=== PATIENT | male | born 1990 | race Caucasian/White ===

== ENCOUNTER 2017-11-03 12:27 | Inpatient (IN) | payer OTHER ==
[~2017-11-03] VITALS: Ht 177.8 cm; Wt 122.5 kg
[~2017-11-03 12:27] MED LIST: CIPROFLOXACIN500 M1 PO; LOPERAMIDE 2 MG2 M1 PO
[2017-11-03 12:39] VITALS: BP 115/67
[2017-11-03] MEDS ORDERED: IBUPROFEN 800800 M1 PO (12:42)
[2017-11-03 13:52] LABS: HEMATOCRIT 43.6 % (42.0-52.0); HEMOGLOBIN 14.8 gm/dL (14.0-18.0); MCH 32.2 pg (26.0-34.0); MCHC 33.8 g/dL (28.0-37.0); MCV 95.2 fL (80.0-100.0); MPV 6.9 fl. (7.2-11.1); NUCLEATED RBCS 0 /100WBC; PLATELET COUNT* 240 thou/uL (150-400); RBC 4.58 mil/uL (4.50-6.00); RDW-CV 13.2 % (10.5-14.5); WBC 18.5 thou/uL (4.0-11.0)
[2017-11-03 13:59] LABS: URINE BILIRUBIN NEGATIVE (Negative); URINE BLOOD NEGATIVE (Negative); URINE CLARITY SL CLOUDY; URINE COLOR YELLOW; URINE GLUCOSE-RANDOM NEGATIVE (Negative); URINE KETONES NEGATIVE (Negative); URINE LEUKOCYTES-REFLEX NEGATIVE (Negative); URINE NITRITE-REFLEX NEGATIVE (Negative); URINE PROTEIN 1+ (Negative); URINE SPECIFIC GRAVITY 1.015 (1.005-1.030)
[2017-11-03 14:10] LABS: CALCIUM 8.7 mg/dL (8.5-10.1); CREATININE 0.9 mg/dL (0.6-1.3)
[2017-11-03 14:15] LABS: ALBUMIN 3.3 g/dL (3.4-5.0)
[2017-11-03 14:31] LABS: ABSOLUTE EOSINOPHILS 0.4 thou/uL (0.0-0.7); ABSOLUTE LYMPHOCYTES 2.6 thou/uL (0.8-5.3); ABSOLUTE MONOCYTES 0.6 thou/uL (0.0-1.2); ATYPICAL LYMPHS 4 %; PLATELET ESTIMATE ADEQUATE
[2017-11-03 14:33] LABS: AMYLASE 28 U/L (25-115); LIPASE 61 U/L (73-393)
[2017-11-03 17:04] VITALS: BP 104/56
[2017-11-03 17:25] VITALS: BP 125/72
--- NOTE | 2017-11-03 18:49 | NUR ---
PATIENT ADMITTED TO THE FLOOR THIS EVENING, PAIN MEDICATION GIVEN FOR ABDOMEN PAIN. SURGERY TO FOLLOW UP WITH PATIENT ON WHAT THE NEXT STEPS ARE FOR BOWEL PERFORATION. NPO UNTIL SURGERY DECIDES OTHERWISE. PATIENT EDUCATED AND ORIENTED TO ROOM. VITALS WNL, ALL QUESTIONS ANSWERED. BED IN LOWEST POSITON, DENIES NAUSEA AND SHORTNESS OF AIR. FLUIDS INFUSING, CALL LIGHT IN REACH.
[2017-11-03 20:00] VITALS: BP 132/63
--- NOTE | 2017-11-04 02:48 | NUR ---
PT ALERT ORIENTED. TAKING MORPHINE FOR ABD PAIN. UP AD MEGAN IN ROOM. IVF INFUSING. WILL CONTINUE TO MONITOR.
[2017-11-04 04:31] LABS: HEMOGLOBIN 14.1 gm/dL (14.0-18.0); MCH 32.1 pg (26.0-34.0); MCHC 33.7 g/dL (28.0-37.0); MCV 95.4 fL (80.0-100.0); MPV 7.4 fl. (7.2-11.1); RBC 4.4 mil/uL (4.50-6.00); RDW-CV 12.8 % (10.5-14.5); WBC 17.3 thou/uL (4.0-11.0)
[2017-11-04 08:00] VITALS: BP 116/60
[2017-11-04 16:07] VITALS: BP 115/70
--- NOTE | 2017-11-04 16:26 | NUR ---
PATIENT GIVEN PRN FENTANYL THIS AM X 1, NO FURTHER COMPLAINTS OF PAIN. TOLERATING CLEAR DIET. IVF REMAINS INFUSING. PATIENT UP AND AMBULATING WITHOUT DIFFICULTY.
[2017-11-04 19:47] LABS: DIRECT BILIRUBIN 0.5 mg/dL (<0.1-0.3); TOTAL BILIRUBIN 2.5 mg/dL (<0.1-1.0)
[2017-11-04 20:50] VITALS: BP 125/69
[2017-11-05 04:32] LABS: HEMATOCRIT 43.1 % (42.0-52.0); HEMOGLOBIN 14.6 gm/dL (14.0-18.0); MCH 32.2 pg (26.0-34.0); MCV 94.7 fL (80.0-100.0); MPV 7.3 fl. (7.2-11.1); RBC 4.55 mil/uL (4.50-6.00); RDW-CV 12.9 % (10.5-14.5); WBC 15.5 thou/uL (4.0-11.0)
[2017-11-05 04:50] LABS: ALBUMIN 2.9 g/dL (3.4-5.0); CALCIUM 8.9 mg/dL (8.5-10.1); CREATININE 1.1 mg/dL (0.6-1.3); POTASSIUM 3.7 mmol/L (3.5-5.1); TOTAL BILIRUBIN 1.3 mg/dL (<0.1-1.0); TOTAL PROTEIN 7.2 g/dL (6.4-8.2)
[2017-11-05 05:22] LABS: % SATURATION 8 % (20-39); IRON 17 ug/dL (50-175)
--- NOTE | 2017-11-05 05:53 | NUR ---
PT SLEPT MOST OF SHIFT. ASSESSMENT DOCUMENTED. MEDS GIVEN PER E-MAR. IV PATENT, FLUIDS INFUISNG. PAIN MEDS GIVEN PER E-MAR WITH RELIEF. WILL CONTINUE WITH PLAN OF CARE.
[2017-11-05 07:40] VITALS: BP 117/70
[2017-11-05] MEDS ORDERED: CIPRO500 MG PO (09:16)
[2017-11-05] MEDS ORDERED: FLAGYL500 MG PO (09:17)
[2017-11-05 09:32] VITALS: BP 117/70
[2017-11-05] MEDS ORDERED: ALIGN4 MG PO (09:35)
--- NOTE | 2017-11-05 12:10 | NUR ---
PATIENT TOLERATING LOW RES DIET. IV ABX INFUSED CIPRO/FLAGYL ORDERED. PATIENT INSTRUCTED ON LOW RES AND HIGH FIBER DIET, RESOURCES GIVEN. IV DC'D. VERBALIZES UNDERSTANDING OF PAPERWORK AND SCRIPT. PATIENT AMBULATED OUT WITH NURSING STAFF AND ALL BELONGINGS.
[2017-11-06 03:07] LABS: HEPATITIS B SURFACE AG Negative (Negative)
--- NOTE | 2017-11-09 17:21 | CON ---
[address] [address] CONSULTATION Name: FAISAL TEIXEIRA Room: [address] IN M.R.#: [id number] Admission: 11/03/17 Attend Phys: Jessi Gomez MD Discharge: 11/05/17 Date of : 86 Report #: [id number] THIS REPORT FOR: //name// CC: Jessi Abarca [facility] Primary Care Physician DICTATED BY: Lore PRASAD DATE OF SERVICE: 11/04/2017 PCP: He does not have one at the current time/ Please note at the time of this dictation, the patient was seen and physically examined by myself. REASON FOR CONSULTATION: Abdominal pain. HISTORY OF PRESENT ILLNESS: This is a 27-year-old male who on Friday began having some abdominal discomfort. He also noted that he was having decreased amounts of urination and painful urination and then having pain down in his testicles bilaterally, more so on the left than on the right. The patient states he has a long history of having chronic diarrhea in which he goes 3-4 times a day. His bowels are very loose. They may even be looser depending on what he has eaten. He states this has been ongoing for him for probably past 5-7 years. He denies any bright red blood or any melena in his stool at this time. Since being admitted, he states his pain is improved. It is running around 4 to 5. He is able to get up and move around a little bit in the room without any issues. He has had no nausea or vomiting since he has been here. He has had numerous stools that are normal in frequency for him. He denies any fever or chills as well. ALLERGIES: No known drug allergies. MEDICATIONS: From home, ibuprofen as needed. PAST MEDICAL HISTORY: Negative. PAST SURGICAL HISTORY: Negative. FAMILY HISTORY: Father had colon cancer in his early 40s, also cirrhosis of the liver secondary to hepatitis C and alcohol abuse. SOCIAL HISTORY: The patient is , has children. He does drink alcohol weekly, usually a case on the weekend. Denies any tobacco use; however, he does smoke marijuana [place] [address] CONSULTATION Name: FAISAL TEIXEIRA Grabiel Room: [address]#: [id number] Admission: 11/03/17 Attend Phys: Jessi Gomez MD Discharge: 11/05/17 Date of : 86 Report #: [id number] REVIEW OF SYSTEMS: Twelve-point review of systems is essentially negative except what is mentioned in the HPI. PHYSICAL EXAMINATION: VITAL SIGNS: Temperature 36.2, pulse 62, respirations 17 and blood pressure 115/70. HEART: Regular rate and rhythm. LUNGS: Clear. ABDOMEN: Soft, positive bowel sounds in all 4 quadrants with some mild left lower quadrant tenderness noted to palpation. LABORATORY DATA: Hemoglobin 14.1, hematocrit 42, white count on admission was 18.5 and he is down to 17.3 and platelets 213. Sodium 135, potassium 4, chloride 102, CO2 of 30, BUN is 8, creatinine 0.9, GFR is 100 and glucose is 99. Total bilirubin is 3, alkaline phosphatase 70, ALT 45 and AST is 15. CT of the abdomen and pelvis showed a cystic mass at the pancreatic head, hepatosplenomegaly with hepatic steatosis, proximal sigmoid colon had some inflammatory process with stranding and tiny air bubbles likely a microperforation of a diverticulum. IMPRESSION: 1. Abdominal pain. 2. Diarrhea, chronic in nature, 3-4 daily. 3. Leukocytosis. 4. Diverticulitis with a likely microperforation of the diverticulum. 5. Hyperbilirubinemia. 6. Pancreatic head cyst. 7. Family history of colon cancer, father in his 40s. PLAN: 1. Continue his antibiotics. 2. We will start him on a low residue diet. 3. We will have the dietitian come and talk to him about a low residue diet. 4. The patient will need an EUS as an outpatient. 5. He will need an office visit in 4 weeks and we will get him scheduled for a colonoscopy as an outpatient for evaluation of this area and strong family history of colon cancer. Thank you for allowing us to participate in this patient's care. Please do not hesitate to call with any questions in regard to this consult. ADDENDUM REFERRING PHYSICIAN: [place] [address] CONSULTATION Name: FAISAL TEIXEIRA Room: [address] [place] .R.#: [id number] Admission: 11/03/17 Attend Phys: Jessi Gomez MD Discharge: 11/05/17 Date of : 86 Report #: [id number] I have seen and examined the patient and agree with plans that have been outlined by our nurse practitioner, Lore Bagley. I have also reviewed the patient's clinical history as well as his CT scan and suspect this is all a bout of self-limited sigmoid diverticulitis. For this reason, I would agree with continuing the patient on antibiotics and he will need to go home eventually on another 10-12 days of Cipro and Flagyl plus a probiotic such as Align and continue the Align thereafter for at least another couple of weeks. He will need to be on low residue diet and we will have the dietitian instruct him in the same while he is on antibiotics and go to a high fiber diet thereafter. As long as he is doing well, they will recede. We will have him come back in the office in 4 weeks or so to make sure everything is going well and at that time get him set up for an upper and lower endoscopy to evaluate his complaints of chronic reflux as well as his suspected bout of diverticulitis. At the time of his colonoscopy, we will tattoo the proximal and distal extents of his diverticular disease within the sigmoid colon in case this becomes a recurrent problem and requires surgical intervention for the same. I discussed those plans with the patient as well and he is agreeable to the same. He will definitely also need to get set up for an endoscopic ultrasound to better evaluate the cystic area within the pancreatic head. It appears benign, but he would need an endoscopic ultrasound with FNA of the cyst to ensure its benign appearance. <ELECTRONICALLY SIGNED> By: Sean Curtis DO 11/09/17 1721 [id number] Curtis DO /nt
== END 2017-11-05 12:16 | disposition home health service (06) | DRG 392 ==
LOC: M.ERS 12:27 → M.3W 16:04 → M.TBA-ER 16:04 → M.3W 17:24
PROVIDERS: Internal Medicine Gastroenterology; Nurse Practitioner Adult Health; Nurse Practitioner Family; ADMIT Surgery
DX: K57.20 Diverticulitis of large intestine with perforation and abscess without bleeding (principal); K86.2 Cyst of pancreas; K52.9 Noninfective gastroenteritis and colitis, unspecified; E80.6 Other disorders of bilirubin metabolism; Z79.899 Other long term (current) drug therapy; Z79.1 Long term (current) use of non-steroidal anti-inflammatories (NSAID); Z80.0 Family history of malignant neoplasm of digestive organs; Z83.79 Family history of other diseases of the digestive system; Z87.891 Personal history of nicotine dependence

== ENCOUNTER 2018-08-24 07:57 | Emergency (ER) | payer OTHER ==
[~2018-08-24] VITALS: Ht 177.8 cm; Wt 99.8 kg
[~2018-08-24 07:57] MED LIST changes: +ALIGN4 MG PO; +CIPRO500 MG PO; +FLAGYL500 MG PO; +IBUPROFEN 800800 M1 PO
[2018-08-24 08:36] LABS: URINE BILIRUBIN NEGATIVE (Negative); URINE BLOOD NEGATIVE (Negative); URINE CLARITY CLEAR; URINE COLOR YELLOW; URINE GLUCOSE-RANDOM NEGATIVE (Negative); URINE KETONES NEGATIVE (Negative); URINE LEUKOCYTES-REFLEX NEGATIVE (Negative); URINE NITRITE-REFLEX NEGATIVE (Negative); URINE PROTEIN NEGATIVE (Negative); URINE SPECIFIC GRAVITY >= 1.030 (1.005-1.030); URINE UROBILINOGEN 0.2 E.U./dl (0.2-1.0)
[2018-08-24 08:46] LABS: ABSOLUTE BASOPHILS 0.1 thou/uL (0.0-0.2); ABSOLUTE EOSINOPHILS 0.3 thou/uL (0.0-0.7); ABSOLUTE LYMPHOCYTES 2.4 thou/uL (0.8-5.3); ABSOLUTE MONOCYTES 0.9 thou/uL (0.0-1.2); ABSOLUTE NEUTROPHILS 7.8 thou/uL (1.6-8.1); BASOPHILS 0.6 %; EOSINOPHILS 2.9 %; HEMATOCRIT 40.7 % (42.0-52.0); HEMOGLOBIN 13.6 gm/dL (14.0-18.0); LYMPHOCYTES 21.2 %; MCH 31.1 pg (26.0-34.0); MCHC 33.5 g/dL (28.0-37.0); MCV 92.8 fL (80.0-100.0); MONOCYTES 7.4 %; NUCLEATED RBCS 0 /100WBC; PLATELET COUNT* 245 thou/uL (150-400); POLYS 67.9 %; RBC 4.38 mil/uL (4.50-6.00); RDW-CV 13.1 % (10.5-14.5); WBC 11.5 thou/uL (4.0-11.0)
[2018-08-24 08:51] LABS: CALCIUM 8.8 mg/dL (8.5-10.1); POTASSIUM 3.4 mmol/L (3.5-5.1)
[2018-08-24 08:55] LABS: ALBUMIN 3.6 g/dL (3.4-5.0); TOTAL BILIRUBIN 0.8 mg/dL (<0.1-1.0); TOTAL PROTEIN 6.5 g/dL (6.4-8.2)
[2018-08-24 10:46] VITALS: BP 127/71
== END 2018-08-24 10:46 | disposition home or self-care (01) ==
LOC: M.ERS 07:57
PROVIDERS: Emergency Medicine
DX: K59.00 Constipation, unspecified (principal)

== ENCOUNTER 2019-05-08 11:28 | Emergency (ER) | payer OTHER ==
[~2019-05-08] VITALS: Ht 182.9 cm; Wt 95.3 kg
[2019-05-08 11:43] VITALS: BP 152/70
[2019-05-08] MEDS ORDERED: SUPRAX400 M1 PO (11:48)
[2019-05-08] MEDS ORDERED: AZITHROMYCIN 2250 MG PO (11:48)
== END 2019-05-08 11:53 | disposition home or self-care (01) ==
LOC: M.ERS 11:28
DX: Z20.2 Contact with and (suspected) exposure to infections with a predominantly sexual mode of transmission (principal)

== ENCOUNTER 2020-06-17 11:12 | Emergency (ER) | payer OTHER ==
[~2020-06-17] VITALS: Ht 177.8 cm; Wt 108.9 kg
[~2020-06-17 11:12] MED LIST changes: +AZITHROMYCIN 2250 MG PO; +SUPRAX400 M1 PO
[2020-06-17] MEDS ORDERED: FLEXERIL PO (12:09)
[2020-06-17] MEDS ORDERED: HYDROCODON-ACE1 EAC7 PO (12:09)
[2020-06-17 12:12] VITALS: BP 136/72
== END 2020-06-17 12:12 | disposition home or self-care (01) ==
LOC: M.ERS 11:12
DX: S46.811A Strain of other muscles, fascia and tendons at shoulder and upper arm level, right arm, initial encounter (principal); W07.XXXA Fall from chair, initial encounter; Y93.89 Activity, other specified; Y92.89 Other specified places as the place of occurrence of the external cause; Y99.8 Other external cause status

== ENCOUNTER 2020-09-07 10:22 | Emergency (ER) | payer OTHER ==
[~2020-09-07] VITALS: Ht 177.8 cm; Wt 106.6 kg
[~2020-09-07 10:22] MED LIST changes: +FLEXERIL PO; +HYDROCODON-ACE1 EAC7 PO
[2020-09-07] MEDS ORDERED: APAP W/CODEINE1 TA2 PO (10:44)
[2020-09-07 11:00] VITALS: BP 138/75
== END 2020-09-07 11:00 | disposition home or self-care (01) ==
LOC: M.ERS 10:22
DX: R30.0 Dysuria (principal); Z20.2 Contact with and (suspected) exposure to infections with a predominantly sexual mode of transmission

== ENCOUNTER → 2021-03-16 | Outpatient (CLI) | payer OTHER ==
[~2021-03-16] MED LIST changes: +APAP W/CODEINE1 TA2 PO
== END ==
LOC: M.MRI 08:11
PROVIDERS: ATTEND Nurse Practitioner Family
DX: S46.011A Strain of muscle(s) and tendon(s) of the rotator cuff of right shoulder, initial encounter (principal); M25.411 Effusion, right shoulder; X58.XXXA Exposure to other specified factors, initial encounter; Y93.89 Activity, other specified; Y92.89 Other specified places as the place of occurrence of the external cause; Y99.8 Other external cause status

== ENCOUNTER 2021-04-07 05:48 | Emergency (ER) | payer OTHER ==
[~2021-04-07] VITALS: Ht 177.8 cm; Wt 106.6 kg
[2021-04-07] MEDS ORDERED: HYDROCODON-ACE1 EAC7 PO (08:12)
[2021-04-07 08:28] VITALS: BP 125/70
== END 2021-04-07 08:29 | disposition home or self-care (01) ==
LOC: M.ERS 05:48
DX: M25.511 Pain in right shoulder (principal); X50.1XXA Overexertion from prolonged static or awkward postures, initial encounter; Y93.89 Activity, other specified; Y92.89 Other specified places as the place of occurrence of the external cause; Y99.8 Other external cause status